=== PATIENT | female | born 1970 | race African-American/Black ===

== ENCOUNTER 2022-01-15 10:32 | Emergency (ER) | payer MEDICAID ==
[~2022-01-15] VITALS: Ht 149.9 cm; Wt 61.0 kg
[2022-01-15] MEDS ORDERED: DIPHENHYDRAMINE 50MG CAPSULE PO ONE (10:45)
[2022-01-15] MEDS ORDERED: PREDNISONE 20MG TABLET PO ONE (10:45)
[2022-01-15] MEDS ORDERED: PRIL20 MT (12:02)
[2022-01-15] MEDS ORDERED: LORA10TA7 MT (12:02)
[2022-01-15] MEDS ORDERED: CEPH500T MT (12:03)
[2022-01-15 12:25] VITALS: BP 165/96
== END 2022-01-15 12:28 | disposition home or self-care (01) ==
LOC: ER 10:32
DX: S70.362A Insect bite (nonvenomous), left thigh, initial encounter (principal); L03.116 Cellulitis of left lower limb; I10 Essential (primary) hypertension; W57.XXXA Bitten or stung by nonvenomous insect and other nonvenomous arthropods, initial encounter; Y93.9 Activity, unspecified; Y92.9 Unspecified place or not applicable
CPT/HCPCS: 99283; J7512; Q0163

== ENCOUNTER 2022-07-13 10:29 | Emergency (ER) | payer MEDICAID ==
[~2022-07-13] VITALS: Ht 149.9 cm; Wt 59.0 kg
[~2022-07-13 10:29] MED LIST: CEPH500T MT; LORA10TA7 MT; PRIL20 MT
[2022-07-13 10:40] VITALS: BP 148/89
[2022-07-13] MEDS ORDERED: CRES10 PO (10:44)
[2022-07-13] MEDS ORDERED: IBUPROFEN 600MG TABLET PO ONE (11:15)
[2022-07-13] MEDS ORDERED: CETIRIZINE 10MG TABLET PO SCH (11:15)
[2022-07-13] MEDS ORDERED: CEPH500C2 MT (11:37)
[2022-07-13] MEDS ORDERED: LORA10TA7 MT (11:37)
[2022-07-13] MEDS ORDERED: HYDR453.3 TP (11:37)
[2022-07-13] MEDS ORDERED: IBUP-2029 MT (11:37)
== END 2022-07-13 11:55 | disposition home or self-care (01) ==
LOC: ER 10:29
DX: L03.116 Cellulitis of left lower limb (principal); S80.862A Insect bite (nonvenomous), left lower leg, initial encounter; I10 Essential (primary) hypertension; W57.XXXA Bitten or stung by nonvenomous insect and other nonvenomous arthropods, initial encounter; Y93.9 Activity, unspecified; Y92.9 Unspecified place or not applicable; Z87.19 Personal history of other diseases of the digestive system; Z90.710 Acquired absence of both cervix and uterus; Z98.890 Other specified postprocedural states
CPT/HCPCS: 99283